=== PATIENT | female | born 1970 | race Caucasian/White ===

== ENCOUNTER 2017-01-28 03:56 | Emergency (ER) | payer MEDICAID, MEDICARE, OTHER ==
[~2017-01-28] VITALS: Ht 162.6 cm; Wt 182.3 kg
[2017-01-28] MEDS ORDERED: NS IV 500 ML 500 ML IV ONE (04:05)
[2017-01-28] MEDS ORDERED: KETOROLAC 30 MG/ML VIAL IVP STA (04:05)
--- NOTE | 2017-01-28 04:09 | ED General ---
General Chief Complaint: Psych/Social Disorder Stated Complaint: ANXIETY ATTACK Nursing Triage Note: pt woke up confused as to person, place et time. she was visiting [place] looking for a place to live. she is anxious about returning to [place] to prepare to move. she reports that symptoms had resolved by the time ems arrived, but she would like to be checked out. Nursing Sepsis Screen: No Definite Risk Source of Information: Patient Exam Limitations: No Limitations History of Present Illness Time Seen by Provider: 04:00 Initial Comments Here by EMS with report of anxiousness. She states that she was sleeping and woke up disoriented and didn't know where she was at and was very anxious. She thinks that she may be anxious because she has to go back to [place] today. She states that she had some chest pain during that event but it resolved quickly. She has had similar anxiety reaction with other events in her life. Complains of headache and swelling to the back of her head. Denies any injury or passing out. Overall doing better currently Timing/Duration: 1/2 Hour Severity: Moderate Modifying Factors: improves with Rest Associated Systoms: Chest PainNo Fever/Chills, HeadachesNo Nausea/Vomiting, No Shortness of Air, No Weakness Allergies and Home Medications Allergies Coded Allergies: codeine (Verified Allergy, Unknown, 01/28/17) morphine (Verified Allergy, Unknown, 01/28/17) Home Medications Acetaminophen 325 Mg Tablet 325 MG PO (Reported) Allopurinol 300 Mg Tablet 300 MG PO DAILY (Reported) Amlodipine/Valsartan 1 Each Tablet 1 EACH PO DAILY (Reported) Duloxetine HCl 60 Mg Capsule.dr 60 MG PO DAILY (Reported) Levothyroxine Sodium 175 Mcg Tablet 175 MCG PO DAILY (Reported) Losartan/Hydrochlorothiazide 1 Each Tablet 1 EACH PO DAILY (Reported) Meclizine HCl 25 Mg Tablet 25 MG PO Q6H PRN PRN DIZZINESS (Reported) Metformin HCl 500 Mg Tablet 500 MG PO BID (Reported) Naproxen Sodium 220 Mg Capsule 220 MG PO (Reported) Nebivolol HCl 10 Mg Tab 10 MG PO DAILY (Reported) Nitrofurantoin Monohyd/M-Cryst 100 Mg Capsule 1 TAB PO BID (Reported) Quetiapine Fumarate 100 Mg Tablet 100 MG PO HS (Reported) Scopolamine 1 Each Patch.td72 1 EACH TD (Reported) Tramadol HCl 50 Mg Tablet 50 MG PO Q6H PRN PRN PAIN (Reported) Constitutional: see HPINo chills, No fever EENTM: no symptoms reported Respiratory: no symptoms reportedNo short of breath, No wheezing Cardiovascular: see HPI chest pain Gastrointestinal: No nausea, No vomiting Genitourinary: No pain, other (currently being treated for urinary tract infection) Musculoskeletal: no symptoms reported Skin: no symptoms reported Psychiatric/Neurological: Anxiety Headache (posterior)Denies Weakness Hematologic/Lymphatic: No Symptoms Reported All Other Systems Reviewed Negative Unless Noted: Yes Past Gonwlvx-Gzyvwd-Lvauon Hx Patient Social History Alcohol Use: Denies Use Recreational Drug Use: No Smoking Status: Never a Smoker Recent Foreign Travel: No Contact w/Someone Who Travel: No Recent Infectious Disease Expo: No Recent Hopitalizations: Yes (vertigo, uti) Seasonal Allergies Seasonal Allergies: Yes Surgeries HX Surgeries: Yes Surgeries: Section, Gallbladder Respiratory Hx Respiratory Disorders: No Cardiovascular Hx Cardiac Disorders: Yes Cardiac Disorders: High Cholesterol, Hypertension Neurological Hx Neurological Disorders: Yes Neurological Disorders: Headaches /Migraines, Stroke Reproductive System Female Reproductive Disorders: Endometriosis Gastrointestinal Hx Gastrointestinal Disorders: No Musculoskeletal Hx Musculoskeletal Disorders: Yes Musculoskeletal Disorders: Gout Endocrine Hx Endocrine Disorders: Yes (thyroid disease) Endocrine Disorders: Diabetes, Non-Insulin dep Psychosocial Hx Psychiatric Problems: Yes Behavioral Health Disorders: Anxiety, Depression Reviewed Nursing Assessment Reviewed/Agree w Nursing PMH: Yes Family Medical History Significant Family History: No Pertinent Family Hx Physical Exam Vital Signs Vital Sign - Last 12Hours 01/28/17 03:58 Temp 97.6 Pulse 82 Resp 18 B/P 153/103 Capillary Refill : Less Than 3 Seconds General Appearance: No Apparent Distress WD/WN HEENT: PERRL/EOMI Pharynx Normal Neck: Non Tender Supple (just wants wound) Respiratory: Lungs Clear Normal Breath Sounds Cardiovascular: Regular Rate, Rhythm No Murmur Gastrointestinal: Non Tender Soft Back: Normal Inspection No CVA Tenderness No Vertebral Tenderness Extremity: Non Tender No Calf Tenderness Neurologic/Psychiatric: Alert Oriented x3 No Motor/Sensory Deficits Skin: Normal Color Warm/Dry Focused Exam Lactic Acid Level Laboratory Tests Test 01/28/17 04:30 Alanine Aminotransferase (ALT/SGPT) 12U/L (0-55) Albumin 3.5G/DL (3.2-4.5) Alkaline Phosphatase 103U/L (40-136) Anion Gap 14MMOL/L (5-14) Aspartate Amino Transf (AST/SGOT) 15U/L (5-34) BUN/Creatinine Ratio 21 Blood Urea Nitrogen 26MG/DL (7-18) H C-Reactive Protein High Sensitivity 2.19MG/DL (0.00-0.50) H Calcium Level 8.9MG/DL (8.5-10.1) Carbon Dioxide Level 24MMOL/L (21-32) Chloride Level 97MMOL/L (98-107) L Creatinine 1.24MG/DL (0.60-1.30) Estimat Glomerular Filtration Rate 47 Glucose Level 125MG/DL (70-105) H Magnesium Level 1.2MG/DL (1.8-2.4) L Potassium Level 3.8MMOL/L (3.6-5.0) Sodium Level 135MMOL/L (135-145) Thyroid Stimulating Hormone (TSH) 14.52UIU/ML (0.35-4.94) H Total Bilirubin 0.1MG/DL (0.1-1.0) Total Protein 7.5G/DL (6.4-8.2) Troponin I < 0.30NG/ML (<0.30) Progress/Results/Core Measures Results/Orders Lab Results Laboratory Tests Test 01/28/17 04:30 01/28/17 05:15 Range/Units Alanine Aminotransferase (ALT/SGPT) 12 0-55 U/L Albumin 3.5 3.2-4.5 G/DL Alkaline Phosphatase 103 40-136 U/L Anion Gap 14 5-14 MMOL/L Anisocytosis SLIGHT Aspartate Amino Transf (AST/SGOT) 15 5-34 U/L BUN/Creatinine Ratio 21 Band Neutrophils 1 % Basophils # (Auto) 0.1 0.0-0.1 10^3/uL Basophils % (Manual) 0 % Basophils (%) (Auto) 0 0-10 % Blood Urea Nitrogen 26 H 7-18 MG/DL C-Reactive Protein High Sensitivity 2.19 H 0.00-0.50 MG/DL Calcium Level 8.9 8.5-10.1 MG/DL Carbon Dioxide Level 24 21-32 MMOL/L Chloride Level 97 L 98-107 MMOL/L Creatinine 1.24 0.60-1.30 MG/DL Eosinophils # (Auto) 0.7 H 0.0-0.3 10^3/uL Eosinophils % (Manual) 6 % Eosinophils (%) (Auto) 5 0-10 % Estimat Glomerular Filtration Rate 47 Glucose Level 125 H 70-105 MG/DL Hematocrit 40 35-52 % Hemoglobin 13.2 11.5-16.0 G/DL Lymphocytes # (Auto) 6.4 H 1.0-4.0 X 10^3 Lymphocytes % (Manual) 36 % Lymphocytes (%) (Auto) 41 12-44 % Magnesium Level 1.2 L 1.8-2.4 MG/DL Mean Corpuscular Hemoglobin 29 25-34 PG Mean Corpuscular Hemoglobin Concent 33 32-36 G/DL Mean Corpuscular Volume 87 80-99 FL Mean Platelet Volume 9.0 7.4-10.4 FL Monocytes # (Auto) 1.1 H 0.0-1.0 X 10^3 Monocytes % (Manual) 4 % Monocytes (%) (Auto) 7 0-12 % Neutrophils # (Auto) 7.5 1.8-7.8 X 10^3 Neutrophils % (Manual) 51 % Neutrophils (%) (Auto) 48 42-75 % Platelet Count 307 130-400 10^3/uL Potassium Level 3.8 3.6-5.0 MMOL/L Reactive Lymphocytes 2 % Red Blood Count 4.58 4.35-5.85 10^6/uL Red Cell Distribution Width 14.4 10.0-14.5 % Sodium Level 135 135-145 MMOL/L Thyroid Stimulating Hormone (TSH) 14.52 H 0.35-4.94 UIU/ML Total Bilirubin 0.1 0.1-1.0 MG/DL Total Protein 7.5 6.4-8.2 G/DL Troponin I < 0.30 <0.30 NG/ML White Blood Count 15.8 H 4.3-11.0 10^3/uL Urine Bacteria LARGE H /HPF Urine Bilirubin NEGATIVE NEGATIVE Urine Casts NONE /LPF Urine Clarity VERY CLOUDY H Urine Color YELLOW Urine Crystals NONE /LPF Urine Culture Indicated YES Urine Glucose (UA) NEGATIVE NEGATIVE Urine Ketones 1+ H NEGATIVE Urine Leukocyte Esterase 3+ H NEGATIVE Urine Mucus SMALL H /LPF Urine Nitrite NEGATIVE NEGATIVE Urine Protein 4+ NEGATIVE Urine RBC 0-2 /HPF Urine RBC (Auto) 5+ H NEGATIVE Urine Specific [place] 1.020 1.016-1.022 Urine Squamous Epithelial Cells 5-10 /HPF Urine Urobilinogen NORMAL NORMAL MG/DL Urine WBC 5-10 H /HPF Urine pH 5 5-9 My Orders Orders-STEPHANIE DANIELS MD Cbc With Automated Diff (01/28/17 04:05) Comprehensive Metabolic Panel (01/28/17 04:05) Hs C Reactive Protein (01/28/17 04:05) Magnesium (01/28/17 04:05) Thyroid Stimulating Hormone (01/28/17 04:05) Troponin I (01/28/17 04:05) Ekg Tracing (01/28/17 04:05) Monitor-Rhythm Ecg Trace Only (01/28/17 04:05) Saline Lock/Iv-Start (01/28/17 04:05) Ns Iv 500 Ml (Sodium Chloride 0.9%) (01/28/17 04:05) Ketorolac Injection (Toradol Injection) (01/28/17 04:05) Chest 1 View, Ap/Pa Only (01/28/17 04:05) Manual Differential (01/28/17 04:30) Ua Culture If Indicated (01/28/17 05:07) Urine Culture (01/28/17 05:15) Medications Given in ED Current Medications Medications Dose Ordered Sig/Sanju Route Start Time Stop Time Status Last Admin Dose Admin Sodium Chloride 500 ml @ 0 mls/hr Q0M ONCE IV 01/28/17 04:05 01/28/17 04:09 DC 01/28/17 04:51 500 MLS/HR Vital Signs/I&O Vital Sign - Last 12Hours 01/28/17 03:58 Temp 97.6 Pulse 82 Resp 18 B/P 153/103 Blood Pressure Mean: 120 Progress Note : Progress Note Seen and evaluated. IV, labs, EKG and chest x-ray. Toradol 30 mg IV for headache. Normal saline 500 mL bolus. Monitor patient. I did chest x-ray order CT of the head but patient states that she cannot tolerate it while she was at the CT scanner. She had a mini anxiety attack at the time. CT was canceled. Patient noted to have a mild elevation of white count. 0535: Patient is noted to have persistent urinary tract infection. We will continue outpatient treatment. She has previously been on nitrofurantoin which has not helped. We will switch to Keflex outpatient. Overall she is feeling better. Discharged home with return precautions. Patient verbalize understanding instructions and agreement with plan. ECG Initial ECG Impression Date: Jan 28, 2017 Initial ECG Impression Time: 03:11 Initial ECG Rate: 79 Initial ECG Rhythm: Normal Sinus Initial ECG Comparisson: No Previous ECG Available Comment Sinus rhythm with rightward axis. No evidence of ST elevation GA. No previous available for comparison. Interpreted by me. Diagnostic Imaging Diagonstic Imaging: Xray Plain Films/CT/US/NM/MRI: chest Comments No acute findings Reviewed: Reviewed by Me Departure Impression Impression: Primary Impression: Anxiety Additional Impression: Urinary tract infection Qualified Code: N30.00 - Acute cystitis without hematuria Disposition: HOME, SELF-CARE Condition: Improved Departure-Patient Inst. Decision time for Depature: 05:41 Referrals: NO,LOCAL PHYSICIAN (PCP) Primary Care Physician Patient Instructions: Panic Disorder (DC), Urinary Tract Infection, Adult (DC) Add. Discharge Instructions: All discharge instructions reviewed with patient and/or family. Voiced understanding. Continue home medications as prescribed. I'll up with her for recheck and further evaluation. Talk with your doctor about the headaches that you've been having. Return for worse pain, fever, vomiting, weakness, breathing problems or other concerns as needed. Scripts Cephalexin 500 Mg [id number] Mg PO TID #21 TAB Prov:STEPHANIE DANIELS MD 01/28/17 STEPHANIE DANIELS MD Jan 28, 2017 04:09
[2017-01-28] MEDS ORDERED: LEVO175T5 PO (04:21)
[2017-01-28] MEDS ORDERED: SCOP1PAT TD (04:21)
[2017-01-28] MEDS ORDERED: LOSA1TAB19 PO (04:21)
[2017-01-28] MEDS ORDERED: NAPR220C11 PO (04:21)
[2017-01-28] MEDS ORDERED: ACET325T49 PO (04:21)
[2017-01-28] MEDS ORDERED: ALLO300T2 PO (04:21)
[2017-01-28] MEDS ORDERED: QUET100T69 PO (04:21)
[2017-01-28] MEDS ORDERED: [UNRECOGNIZED DRUG - CODE] PO (04:21)
[2017-01-28] MEDS ORDERED: METF500T4 PO (04:38)
[2017-01-28] MEDS ORDERED: DULO60CA58 PO (04:38)
[2017-01-28] MEDS ORDERED: NFNEB10T PO (04:38)
[2017-01-28] MEDS ORDERED: TRAM50TA2 PO (04:38)
[2017-01-28] MEDS ORDERED: NITR-65 PO (04:38)
[2017-01-28] MEDS ORDERED: MECL-106 PO (04:38)
[2017-01-28 04:39] LABS: BASOPHILS # (AUTO) 0.1 10^3/uL (0.0-0.1); BASOPHILS % (AUTO) 0 % (0-10); EOSINOPHILS # (AUTO) 0.7 10^3/uL (0.0-0.3); EOSINOPHILS % (AUTO) 5 % (0-10); LYMPHOCYTES # (AUTO) 6.4 X 10^3 (1.0-4.0); LYMPHOCYTES % (AUTO) 41 % (12-44); MEAN CORPUSCULAR HEMOGLOBIN 29 PG (25-34); MEAN CORPUSCULAR HGB CONC 33 G/DL (32-36); MEAN CORPUSCULAR VOLUME 87 FL (80-99); MONOCYTES # (AUTO) 1.1 X 10^3 (0.0-1.0); MONOCYTES % (AUTO) 7 % (0-12); NEUTROPHILS # (AUTO) 7.5 X 10^3 (1.8-7.8); NEUTROPHILS % (AUTO) 48 % (42-75); PLATELET COUNT 307 10^3/uL (130-400); RED BLOOD COUNT 4.58 10^6/uL (4.35-5.85); RED CELL DISTRIBUTION WIDTH 14.4 % (10.0-14.5); WHITE BLOOD COUNT 15.8 10^3/uL (4.3-11.0)
[2017-01-28 05:01] LABS: ALANINE AMINOTRANSFERASE 12 U/L (0-55); ALBUMIN 3.5 G/DL (3.2-4.5); ANION GAP 14 MMOL/L (5-14); ASPARTATE AMINO TRANSFERASE 15 U/L (5-34); BILIRUBIN,TOTAL 0.1 MG/DL (0.1-1.0); BLOOD UREA NITROGEN 26 MG/DL (7-18); BUN/CREATININE RATIO 21; CALCIUM 8.9 MG/DL (8.5-10.1); CARBON DIOXIDE 24 MMOL/L (21-32); CHLORIDE 97 MMOL/L (98-107); CREATININE SERUM 1.24 MG/DL (0.60-1.30); GFR ESTIMATED 47; GLUCOSE 125 MG/DL (70-105); MAGNESIUM 1.2 MG/DL (1.8-2.4); POTASSIUM 3.8 MMOL/L (3.6-5.0); SODIUM 135 MMOL/L (135-145); TOTAL PROTEIN 7.5 G/DL (6.4-8.2); hs C REACTIVE PROTEIN 2.19 MG/DL (0.00-0.50)
[2017-01-28 05:03] LABS: ANISOCYTOSIS SLIGHT; BAND NEUTROPHILS 1 %; BASOPHILS % (MANUAL) 0 %; EOSINOPHILS % (MANUAL) 6 %; LYMPHOCYTES % (MANUAL) 36 %; NEUTROPHILS % (MANUAL) 51 %; REACTIVE LYMPHOCYTES 2 %
[2017-01-28 05:20] LABS: BILIRUBIN,URINE NEGATIVE (NEGATIVE); KETONES,URINE 1+ (NEGATIVE); LEUKOCYTE ESTERASE ,URINE 3+ (NEGATIVE); NITRITE,URINE NEGATIVE (NEGATIVE); PH,URINE 5 (5-9); PROTEIN,URINE 4+ (NEGATIVE); UROBILINOGEN,URINE NORMAL (NORMAL)
[2017-01-28 05:20] LABS: THYROID STIMULATING HORMONE 14.52 UIU/ML (0.35-4.94); TROPONIN I < 0.30 NG/ML (<0.30)
[2017-01-28] MEDS ORDERED: CEPH500T PO (05:43)
[2017-01-28 05:55] VITALS: BP 160/98
--- NOTE | 2017-01-28 06:36 | Diagnostic Imaging Report ---
INDICATION: Chest pain. Portable chest 4:57 AM. Heart size and pulmonary vascularity are normal. Lungs are clear. There are no effusions or pneumothoraces. IMPRESSION: Negative chest. Dictated by: Dictated on workstation # [id number]
== END 2017-01-28 05:52 | disposition home or self-care (01) ==
LOC: ER 04:01
DX: F41.9 Anxiety disorder, unspecified (principal); I10 Essential (primary) hypertension; E11.9 Type 2 diabetes mellitus without complications; Z79.84 Long term (current) use of oral hypoglycemic drugs; Z79.899 Other long term (current) drug therapy
CPT/HCPCS: 36415; 71010; 80053; 81000; 83735; 84443; 84484; 85007; 85027; 86141; 87088; 93005; 93041; 96361; 96374

== ENCOUNTER 2017-04-26 18:29 | Emergency (ER) | payer MEDICAID, MEDICARE ==
[~2017-04-26] VITALS: Ht 162.6 cm; Wt 174.6 kg
[~2017-04-26 18:29] MED LIST: ACET325T49 PO; ALLO300T2 PO; CEPH500T PO; DULO60CA58 PO; LEVO175T5 PO; LOSA1TAB19 PO; MECL-106 PO; METF500T4 PO; NAPR220C11 PO; NFNEB10T PO; NITR-65 PO; QUET100T69 PO; SCOP1PAT TD; TRAM50TA2 PO; [UNRECOGNIZED DRUG - CODE] PO
--- NOTE | 2017-04-26 18:36 | ED GU-Female ---
General Chief Complaint: Abdominal/GI Problems Stated Complaint: LT FLANK PAIN Source: patient, EMS, RN notes reviewed Exam Limitations: no limitations History of Present Illness Time seen by provider: 18:28 Initial Comments Patient presents via EMS c/ c/o left flank pain and dysuria for the last 2-3 days. Symptoms have become progressively worse. Denies any N/V. No known fever. Rates her pain a 10/10 and constant. Pain does seem worse when urinating. Not aware of injuring self. Timing/Duration: constant, yesterday Severity/Quality: severe, burning, sharp Location: left flank Radiation: none Activities at Onset: none Modifying Factors: Worsens With Urinating Associated Symptoms: dysuria, No fever/chills, No nausea/vomiting Allergies and Home Medications Allergies Coded Allergies: codeine (Verified Allergy, Unknown, 01/28/17) morphine (Verified Allergy, Unknown, 01/28/17) Uncoded Allergies: MELVANE (Allergy, Severe, 04/26/17) Home Medications Acetaminophen 325 Mg Tablet, 325 MG PO, (Reported) Allopurinol 300 Mg Tablet, 300 MG PO DAILY, (Reported) Amlodipine/Valsartan 1 Each Tablet, 1 EACH PO DAILY, (Reported) Duloxetine HCl 60 Mg Capsule.dr, 60 MG PO DAILY, (Reported) Hydrocodone/Acetaminophen 1 Each Tablet, 1 EACH PO Q6H PRN for flank pain, #20 Ref 0 Prescribed by: TAYO AGUILAR on 04/26/172104 Levothyroxine Sodium 175 Mcg Tablet, 175 MCG PO DAILY, (Reported) Losartan/Hydrochlorothiazide 1 Each Tablet, 1 EACH PO DAILY, (Reported) Meclizine HCl 25 Mg Tablet, 25 MG PO Q6H PRN for DIZZINESS, (Reported) Metformin HCl 500 Mg Tablet, 500 MG PO BID, (Reported) Methocarbamol 750 Mg Tablet, 1,500 MG PO UD, #60 Ref 0 Prescribed by: TAYO AGUILAR on 04/26/172104 Naproxen Sodium 220 Mg Capsule, 220 MG PO, (Reported) Nebivolol HCl 10 Mg Tab, 10 MG PO DAILY, (Reported) Quetiapine Fumarate 100 Mg Tablet, 100 MG PO HS, (Reported) Scopolamine 1 Each Patch.td72, 1 EACH TD, (Reported) Tramadol HCl 50 Mg Tablet, 50 MG PO Q6H PRN for PAIN, (Reported) Constitutional: see HPI Genitourinary: see HPI, burning, dysuria, flank pain : No All Other Systemes Reviewed Negative Unless Noted: Yes (Negative excepted noted.) Past [place]-Cubmsb-Sbpqts Hx Patient Social History Recent Hopitalizations: Yes (vertigo, uti) Seasonal Allergies Seasonal Allergies: Yes Surgeries HX Surgeries: Yes Surgeries: Section, Gallbladder Respiratory Hx Respiratory Disorders: No Cardiovascular Hx Cardiac Disorders: Yes Cardiac Disorders: High Cholesterol, Hypertension Neurological Hx Neurological Disorders: Yes Neurological Disorders: Headaches /Migraines, Stroke Reproductive System Female Reproductive Disorders: Endometriosis Gastrointestinal Hx Gastrointestinal Disorders: No Musculoskeletal Hx Musculoskeletal Disorders: Yes Musculoskeletal Disorders: Gout Endocrine Hx Endocrine Disorders: Yes (thyroid disease) Endocrine Disorders: Diabetes, Non-Insulin dep Psychosocial Hx Psychiatric Problems: Yes Behavioral Health Disorders: Anxiety, Depression Family Medical History Significant Family History: No Pertinent Family Hx Physical Exam Vital Signs Vital Sign - Last 12Hours 04/26/17 18:31 Temp 97.5 Pulse 81 Resp 20 B/P (MAP) 166/96 Pulse Ox 94 O2 Delivery Nasal Cannula O2 Flow Rate 2.00 Capillary Refill : General Appearance: WD/WN, no apparent distress, obese Cardiovascular: regular rate, rhythm Respiratory: no respiratory distress Gastrointestinal: soft, No distended, No guarding, No rebound, No tenderness, other (obese) Rectal: deferred Back: no CVA tenderness Neurologic/Psychiatric: no motor/sensory deficits, alert, oriented x 3, depressed affect Skin: warm/dry Progress/Results/Core Measures Results/Orders Lab Results Laboratory Tests Test 04/26/17 18:31 04/26/17 18:35 Range/Units Urine Color YELLOW Urine Clarity CLEAR Urine pH 5 5-9 Urine Specific [place] 1.020 1.016-1.022 Urine Protein 3+ H NEGATIVE Urine Glucose (UA) NEGATIVE NEGATIVE Urine Ketones NEGATIVE NEGATIVE Urine Nitrite NEGATIVE NEGATIVE Urine Bilirubin NEGATIVE NEGATIVE Urine Urobilinogen NORMAL NORMAL MG/DL Urine Leukocyte Esterase 1+ H NEGATIVE Urine RBC (Auto) 1+ H NEGATIVE Urine RBC RARE /HPF Urine WBC 0-2 /HPF Urine Squamous Epithelial Cells >50 H /HPF Urine Crystals NONE /LPF Urine Bacteria NONE /HPF Urine Casts NONE /LPF Urine Mucus NEGATIVE /LPF Urine Culture Indicated NO White Blood Count 14.8 H 4.3-11.0 10^3/uL Red Blood Count 4.39 4.35-5.85 10^6/uL Hemoglobin 12.5 11.5-16.0 G/DL Hematocrit 39 35-52 % Mean Corpuscular Volume 88 80-99 FL Mean Corpuscular Hemoglobin 29 25-34 PG Mean Corpuscular Hemoglobin Concent 32 32-36 G/DL Red Cell Distribution Width 13.9 10.0-14.5 % Platelet Count 304 130-400 10^3/uL Mean Platelet Volume 9.7 7.4-10.4 FL Neutrophils (%) (Auto) 46 42-75 % Lymphocytes (%) (Auto) 45 H 12-44 % Monocytes (%) (Auto) 5 0-12 % Eosinophils (%) (Auto) 4 0-10 % Basophils (%) (Auto) 1 0-10 % Neutrophils # (Auto) 6.9 1.8-7.8 X 10^3 Lymphocytes # (Auto) 6.6 H 1.0-4.0 X 10^3 Monocytes # (Auto) 0.8 0.0-1.0 X 10^3 Eosinophils # (Auto) 0.5 H 0.0-0.3 10^3/uL Basophils # (Auto) 0.1 0.0-0.1 10^3/uL Neutrophils % (Manual) 43 % Lymphocytes % (Manual) 49 % Monocytes % (Manual) 1 % Eosinophils % (Manual) 5 % Basophils % (Manual) 1 % Band Neutrophils 1 % Blood Morphology Comment NORMAL Sodium Level 136 135-145 MMOL/L Potassium Level 4.2 3.6-5.0 MMOL/L Chloride Level 99 98-107 MMOL/L Carbon Dioxide Level 26 21-32 MMOL/L Anion Gap 11 5-14 MMOL/L Blood Urea Nitrogen 17 7-18 MG/DL Creatinine 1.27 0.60-1.30 MG/DL Estimat Glomerular Filtration Rate 46 BUN/Creatinine Ratio 13 0-20 Glucose Level 110 H 70-105 MG/DL Calcium Level 8.8 8.5-10.1 MG/DL Total Bilirubin 0.4 0.1-1.0 MG/DL Aspartate Amino Transf (AST/SGOT) 17 5-34 U/L Alanine Aminotransferase (ALT/SGPT) 12 0-55 U/L Alkaline Phosphatase 88 40-136 U/L Total Protein 7.8 6.4-8.2 GM/DL Albumin 3.7 3.2-4.5 GM/DL Serum Test, Qualitative NEGATIVE NEGATIVE My Orders Orders - TAYO AGUILAR DO Saline Lock/Iv-Start (04/26/17 18:33) Cbc With Automated Diff (04/26/17 18:33) Comprehensive Metabolic Panel (04/26/17 18:33) Ua Culture If Indicated (04/26/17 18:33) Ketorolac Injection (Toradol Injection) (04/26/17 18:45) Ns Iv 1000 Ml (Sodium Chloride 0.9%) (04/26/17 18:52) Manual Differential (04/26/17 18:35) Hcg,Qualitative Serum (04/26/17 19:10) Ct Abdomen/Pelvis Wo (04/26/17 19:35) Methocarbamol Tablet (Robaxin Tablet) (04/26/17 21:00) Hydrocodone/Apap 5/325 Tablet (Lortab 5 (04/26/17 21:00) Medications Given in ED Vital Signs/I&O Intake and Output 04/26/17 23:59 Intake Total 1000 ml Balance 1000 ml Diagnostic Imaging Diagonstic Imaging: CT Plain Films/CT/US/NM/MRI: abdomen, pelvis Reviewed: Reviewed [place] Study (nothing acute) Departure Impression Impression: Primary Impression: Left flank pain thought to be musculoskeletal in etiology Additional Impression: Morbid exogenous obesity Disposition: 01 HOME, SELF-CARE Condition: Stable Departure-Patient Inst. Decision time for Depature: 21:02 Referrals: WINNIE METCALF MD Patient Instructions: Flank Pain (DC) Scripts Hydrocodone/Acetaminophen ([place] 7.5-325 Tablet) 1 Each Tablet 1 EACH PO Q6H Y for flank pain, #20 TAB 0 Refills Prov: TAYO AGUILAR DO 04/26/17 Methocarbamol (Robaxin-750) 750 Mg Tablet 1500 MG PO UD for flank pain, #60 TAB 0 Refills Prov: TAYO AGUILAR DO 04/26/17 TAYO AGUILAR DO Apr 26, 2017 18:36
[2017-04-26] MEDS ORDERED: KETOROLAC 30 MG/ML VIAL IVP ONE (18:45)
[2017-04-26 18:49] LABS: BASOPHILS # (AUTO) 0.1 10^3/uL (0.0-0.1); BASOPHILS % (AUTO) 1 % (0-10); EOSINOPHILS # (AUTO) 0.5 10^3/uL (0.0-0.3); EOSINOPHILS % (AUTO) 4 % (0-10); LYMPHOCYTES # (AUTO) 6.6 X 10^3 (1.0-4.0); LYMPHOCYTES % (AUTO) 45 % (12-44); MEAN CORPUSCULAR HEMOGLOBIN 29 PG (25-34); MEAN CORPUSCULAR HGB CONC 32 G/DL (32-36); MEAN CORPUSCULAR VOLUME 88 FL (80-99); MEAN PLATELET VOLUME 9.7 FL (7.4-10.4); MONOCYTES # (AUTO) 0.8 X 10^3 (0.0-1.0); MONOCYTES % (AUTO) 5 % (0-12); NEUTROPHILS # (AUTO) 6.9 X 10^3 (1.8-7.8); NEUTROPHILS % (AUTO) 46 % (42-75); PLATELET COUNT 304 10^3/uL (130-400); RED BLOOD COUNT 4.39 10^6/uL (4.35-5.85); RED CELL DISTRIBUTION WIDTH 13.9 % (10.0-14.5); WHITE BLOOD COUNT 14.8 10^3/uL (4.3-11.0)
[2017-04-26] MEDS ORDERED: NS IV 1000 ML 1,000 ML IV ONE (18:52)
[2017-04-26 19:06] LABS: BAND NEUTROPHILS 1 %; BASOPHILS % (MANUAL) 1 %; EOSINOPHILS % (MANUAL) 5 %; LYMPHOCYTES % (MANUAL) 49 %; NEUTROPHILS % (MANUAL) 43 %
[2017-04-26 19:10] LABS: ALBUMIN 3.7 GM/DL (3.2-4.5); BILIRUBIN,TOTAL 0.4 MG/DL (0.1-1.0); CALCIUM 8.8 MG/DL (8.5-10.1); CREATININE SERUM 1.27 MG/DL (0.60-1.30); POTASSIUM 4.2 MMOL/L (3.6-5.0); TOTAL PROTEIN 7.8 GM/DL (6.4-8.2)
[2017-04-26 19:47] LABS: BILIRUBIN,URINE NEGATIVE (NEGATIVE); KETONES,URINE NEGATIVE (NEGATIVE); LEUKOCYTE ESTERASE ,URINE 1+ (NEGATIVE); NITRITE,URINE NEGATIVE (NEGATIVE); PH,URINE 5 (5-9); PROTEIN,URINE 3+ (NEGATIVE); UROBILINOGEN,URINE NORMAL (NORMAL)
[2017-04-26 19:54] LABS: SQUAMOUS EPITHELIAL CELL,UR >50 /HPF; WBC,URINE 0-2 /HPF
--- NOTE | 2017-04-26 20:55 | Diagnostic Imaging Report ---
PROCEDURE: CT abdomen and pelvis without contrast. TECHNIQUE: Multiple contiguous axial images were obtained through the abdomen and pelvis without the use of intravenous contrast. INDICATION: Left flank pain COMPARISON: None FINDINGS: The lung bases are clear. The liver appears unremarkable. The gallbladder is absent. The pancreas, spleen and adrenal glands appear unremarkable. No urinary tract stone or obstructive uropathy is seen. The kidneys are unremarkable. The uterus and adnexa appear unremarkable. The appendix appears normal. There is no evidence of bowel obstruction. No focal inflammatory process is suspected. There is no adenopathy or ascites. The abdominal aorta appears normal in caliber. There is bilateral spondylolysis at L5, with anterolisthesis of L5 on S1. IMPRESSION: There is no evidence of ureteral stone or obstructive uropathy. No acute abnormality seen in the abdomen and pelvis. Dictated by: Dictated on workstation # [id number]
[2017-04-26] MEDS ORDERED: METHOCARBAMOL 500 MG (ROBAXIN) TABLET PO ONE (21:00)
[2017-04-26] MEDS ORDERED: HYDROcodone/APAP 5 MG/325 MG (LORTAB) TAB PO ONE (21:00)
[2017-04-26] MEDS ORDERED: METH-313 PO (21:05)
[2017-04-26] MEDS ORDERED: HYDR-756 PO (21:05)
[2017-04-26 21:41] VITALS: BP 0/0
== END 2017-04-26 21:41 | disposition home or self-care (01) ==
LOC: EDUNIT# 18:29 → ER 18:30
DX: R10.9 Unspecified abdominal pain (principal); E66.01 Morbid (severe) obesity due to excess calories; E11.9 Type 2 diabetes mellitus without complications; I10 Essential (primary) hypertension; E07.9 Disorder of thyroid, unspecified; Z86.73 Personal history of transient ischemic attack (TIA), and cerebral infarction without residual deficits; Z90.49 Acquired absence of other specified parts of digestive tract; Z79.84 Long term (current) use of oral hypoglycemic drugs
CPT/HCPCS: 36415; 74176; 80053; 81000; 84703; 85007; 85027

== ENCOUNTER 2017-06-01 02:49 | Inpatient (IN) | payer MEDICARE ==
[~2017-06-01] VITALS: Ht 162.6 cm; Wt 179.2 kg
[~2017-06-01 02:49] MED LIST changes: +HYDR-756 PO; +METH-313 PO
[2017-06-01] MEDS ORDERED: NS IV 1000 ML 1,000 ML IV ONE ×2 (03:03→03:38)
--- NOTE | 2017-06-01 03:03 | ED General ---
General Chief Complaint: Altered Mental Status Stated Complaint: DISORIENTATION Source of Information: Patient, EMS Exam Limitations: No Limitations History of Present Illness Time Seen by Provider: 02:52 Initial Comments Patient presents to ER by EMS with a chief complaint of feeling off after waking up around 9:00 last night. She is reporting that she feels she may have had heat stroke after going to the pool today with her group. She says about 5: 00 to go to the pool and she was doing well while waiting in the pool but in the dressing room she felt lightheaded and almost passed out. She did not pass out or fall however. She reports she had a little mild nausea and when she went home she had something to eat and then went to bed. She woke up again around 9 at night and that's when she started feeling bad. She did not check her sugar blood pressure at that time. She is diabetic. EMS reports that when they picked her up she was wearing her oxygen that she typically wears at night or her sleep apnea. She had normal vital signs and a normal blood sugar when EMS picked her up. The place an IV in her right before meals and brought her to the ER. Patient denies any pain anywhere shortness of breath weakness discomfort bowel distention diarrhea, constipation, vomiting, rash, runny nose, ears hurting her feeling underwater. She has however having some nausea and received 4 mg of Zofran from EMS on route. She feels the nausea is better now. She also wants to know if she could be as she is socially active with her monogamous boyfriend. She says she had a D&C approximate 5 years ago and has not had a period since. Patient states she takes meclizine as needed for her history of vertigo. She states that her vertigo presents as dizziness and the room spinning but this is not what she was feeling yesterday after her time in the pool. Allergies and Home Medications Allergies Coded Allergies: codeine (Verified Allergy, Unknown, 01/28/17) morphine (Verified Allergy, Unknown, 01/28/17) Uncoded Allergies: MELVANE (Allergy, Severe, 04/26/17) Home Medications Acetaminophen 325 Mg Tablet, 325 MG PO, (Reported) Allopurinol 300 Mg Tablet, 300 MG PO DAILY, (Reported) Amlodipine/Valsartan 1 Each Tablet, 1 EACH PO DAILY, (Reported) Duloxetine HCl 60 Mg Capsule.dr, 60 MG PO DAILY, (Reported) Hydrocodone/Acetaminophen 1 Each Tablet, 1 EACH PO Q6H PRN for flank pain, #20 Ref 0 Prescribed by: TAYO AGUILAR on 04/26/172104 Levothyroxine Sodium 175 Mcg Tablet, 175 MCG PO DAILY, (Reported) Losartan/Hydrochlorothiazide 1 Each Tablet, 1 EACH PO DAILY, (Reported) Meclizine HCl 25 Mg Tablet, 25 MG PO Q6H PRN for DIZZINESS, (Reported) Metformin HCl 500 Mg Tablet, 500 MG PO BID, (Reported) Methocarbamol 750 Mg Tablet, 1,500 MG PO UD, #60 Ref 0 Prescribed by: TAYO AGUILAR on 04/26/172104 Naproxen Sodium 220 Mg Capsule, 220 MG PO, (Reported) Nebivolol HCl 10 Mg Tab, 10 MG PO DAILY, (Reported) Quetiapine Fumarate 100 Mg Tablet, 100 MG PO HS, (Reported) Scopolamine 1 Each Patch.td72, 1 EACH TD, (Reported) Tramadol HCl 50 Mg Tablet, 50 MG PO Q6H PRN for PAIN, (Reported) Constitutional: No chills, No diaphoresis, No dizziness, No fever, malaise, No weakness EENTM: No ear pain, No eye pain, No nose pain Respiratory: No cough, No short of breath, No wheezing Cardiovascular: No chest pain, No edema, No palpitations, No syncope, No vascular heart diseas Gastrointestinal: No abdominal pain, No constipation, No diarrhea, nausea, No vomiting Genitourinary: No discharge, No dysuria : No (unknown) Musculoskeletal: No back pain, No joint pain Skin: No pruritus, No rash Psychiatric/Neurological: Denies Headache, Denies Numbness, Denies Paresthesia Past Ldmzcmi-Pyvvrz-Hhtoib Hx Patient Social History Recent Foreign Travel: No Contact w/Someone Who Travel: No Recent Hopitalizations: No Seasonal Allergies Seasonal Allergies: Yes Surgeries HX Surgeries: Yes Surgeries: Section, Gallbladder Respiratory Hx Respiratory Disorders: No Cardiovascular Hx Cardiac Disorders: Yes Cardiac Disorders: High Cholesterol, Hypertension Neurological Hx Neurological Disorders: Yes Neurological Disorders: Headaches /Migraines, Stroke Reproductive System Female Reproductive Disorders: Endometriosis Genitourinary Genitourinary Disorders: UTI-Chronic Gastrointestinal Hx Gastrointestinal Disorders: No Musculoskeletal Hx Musculoskeletal Disorders: Yes Musculoskeletal Disorders: Gout Endocrine Hx Endocrine Disorders: Yes (thyroid disease) Endocrine Disorders: Diabetes, Non-Insulin dep Psychosocial Hx Psychiatric Problems: Yes Behavioral Health Disorders: Anxiety, Depression Family Medical History Significant Family History: No Pertinent Family Hx Physical Exam Vital Signs Vital Sign - Last 12Hours 06/01/17 02:54 Temp 96.5 Pulse 97 Resp 18 B/P (MAP) 161/106 Pulse Ox 93 O2 Delivery Room Air Capillary Refill : General Appearance: No Apparent Distress, Obese Eyes: Bilateral Eye EOMI, Bilateral Eye Normal Inspection, Bilateral Eye PERRL HEENT: PERRL/EOMI, Pharynx Normal Neck: Normal Inspection, Non Tender, Supple Respiratory: Lungs Clear, Normal Breath Sounds Cardiovascular: Regular Rate, Rhythm, No Murmur Gastrointestinal: Normal Bowel Sounds, Non Tender, Soft Back: Normal Inspection, No CVA Tenderness Extremity: Normal Capillary Refill, Non Tender Neurologic/Psychiatric: Alert, Oriented x3 Skin: Normal Color, Warm/Dry Lymphatic: No Adenopathy Focused Exam Lactic Acid Level Laboratory Tests Test 06/01/17 03:05 Lactic Acid Level 2.21 MMOL/L (0.50-2.00) *H Progress/Results/Core Measures Results/Orders Lab Results Laboratory Tests Test 06/01/17 02:50 06/01/17 03:05 06/01/17 03:40 Range/Units White Blood Count 20.3 H 4.3-11.0 10^3/uL Red Blood Count 4.22 L 4.35-5.85 10^6/uL Hemoglobin 12.0 11.5-16.0 G/DL Hematocrit 38 35-52 % Mean Corpuscular Volume 90 80-99 FL Mean Corpuscular Hemoglobin 28 25-34 PG Mean Corpuscular Hemoglobin Concent 32 32-36 G/DL Red Cell Distribution Width 14.3 10.0-14.5 % Platelet Count 362 130-400 10^3/uL Mean Platelet Volume 9.7 7.4-10.4 FL Neutrophils (%) (Auto) 48 42-75 % Lymphocytes (%) (Auto) 44 12-44 % Monocytes (%) (Auto) 6 0-12 % Eosinophils (%) (Auto) 2 0-10 % Basophils (%) (Auto) 0 0-10 % Neutrophils # (Auto) 9.6 H 1.8-7.8 X 10^3 Lymphocytes # (Auto) 8.9 H 1.0-4.0 X 10^3 Monocytes # (Auto) 1.3 H 0.0-1.0 X 10^3 Eosinophils # (Auto) 0.4 H 0.0-0.3 10^3/uL Basophils # (Auto) 0.1 0.0-0.1 10^3/uL Neutrophils % (Manual) 51 % Lymphocytes % (Manual) 35 % Monocytes % (Manual) 4 % Eosinophils % (Manual) 2 % Basophils % (Manual) 1 % Reactive Lymphocytes 7 % Blood Morphology Comment NORMAL Prothrombin Time 11.6 L 12.2-14.7 SEC INR Comment 0.9 0.8-1.4 Activated Partial Thromboplast Time 30 24-35 SEC Sodium Level 137 135-145 MMOL/L Potassium Level 3.7 3.6-5.0 MMOL/L Chloride Level 94 L 98-107 MMOL/L Carbon Dioxide Level 25 21-32 MMOL/L Anion Gap 18 H 5-14 MMOL/L Blood Urea Nitrogen 18 7-18 MG/DL Creatinine 1.02 0.60-1.30 MG/DL Estimat Glomerular Filtration Rate 59 BUN/Creatinine Ratio 18 Glucose Level 127 H 70-105 MG/DL Calcium Level 9.2 8.5-10.1 MG/DL Magnesium Level 1.4 L 1.8-2.4 MG/DL Total Bilirubin 0.2 0.1-1.0 MG/DL Aspartate Amino Transf (AST/SGOT) 18 5-34 U/L Alanine Aminotransferase (ALT/SGPT) 12 0-55 U/L Alkaline Phosphatase 83 40-136 U/L Troponin I < 0.30 <0.30 NG/ML C-Reactive Protein High Sensitivity 2.07 H 0.00-0.50 MG/DL Total Protein 8.2 6.4-8.2 GM/DL Albumin 3.6 3.2-4.5 GM/DL Lactic Acid Level 2.21 *H 0.50-2.00 MMOL/L Urine Color YELLOW Urine Clarity CLEAR Urine pH 6.5 5-9 Urine Specific [place] 1.010 L 1.016-1.022 Urine Protein 4+ NEGATIVE Urine Glucose (UA) NEGATIVE NEGATIVE Urine Ketones NEGATIVE NEGATIVE Urine Nitrite NEGATIVE NEGATIVE Urine Bilirubin NEGATIVE NEGATIVE Urine Urobilinogen NORMAL NORMAL MG/DL Urine Leukocyte Esterase NEGATIVE NEGATIVE Urine RBC (Auto) 2+ H NEGATIVE Urine RBC 5-10 H /HPF Urine WBC NONE /HPF Urine Squamous Epithelial Cells 5-10 /HPF Urine Crystals NONE /LPF Urine Bacteria NEGATIVE /HPF Urine Casts NONE /LPF Urine Mucus NEGATIVE /LPF Urine Culture Indicated NO Urine Test NEGATIVE NEGATIVE My Orders Orders - SILKE GARCIA Cbc With Automated Diff (06/01/17 03:03) Comprehensive Metabolic Panel (06/01/17 03:03) Hs C Reactive Protein (06/01/17 03:03) Hcg,Qualitative Urine (06/01/17 03:03) Lactic Acid Analyzer (06/01/17 03:03) Magnesium (06/01/17 03:03) Troponin I (06/01/17 03:03) Ua Culture If Indicated (06/01/17 03:03) Saline Lock/Iv-Start (06/01/17 03:03) Ns Iv 1000 Ml (Sodium Chloride 0.9%) (06/01/17 03:03) Manual Differential (06/01/17 02:50) Magnesium Oxide Tablet (Mag Ox Tablet) (06/01/17 03:30) Blood Culture (06/01/17 03:30) Sputum Culture (06/01/17 03:30) Protime With Inr (06/01/17 03:30) Partial Thromboplastin Time (06/01/17 03:30) Chest 1 View, Ap/Pa Only (06/01/17 03:30) O2 (06/01/17 03:30) Saline Lock/Iv-Start (06/01/17 03:30) Vital Signs Adult Sepsis Patie Q1HR (06/01/17 03:30) Remove Rings In Anticipation O (06/01/17 03:30) Saline Lock/Iv-Start (06/01/17 03:38) Ns Iv 500 Ml (Sodium Chloride 0.9%) (06/01/17 03:38) Ns Iv 1000 Ml (Sodium Chloride 0.9%) (06/01/17 03:38) Ns Iv 1000 Ml (Sodium Chloride 0.9%) (06/01/17 03:45) Medications Given in ED Current Medications Medications Dose Ordered Sig/Sanju Route Start Time Stop Time Status Last Admin Dose Admin Magnesium Oxide 400 mg ONCE ONCE PO 06/01/17 03:30 06/01/17 03:31 DC 06/01/17 03:47 400 MG Sodium Chloride 500 ml @ 0 mls/hr Q0M ONCE IV 06/01/17 03:38 06/01/17 03:40 DC 06/01/17 03:48 0 MLS/HR Sodium Chloride 1,000 ml @ 0 mls/hr Q0M ONCE IV 06/01/17 03:03 06/01/17 03:06 DC 06/01/17 03:12 0 MLS/HR Sodium Chloride 1,000 ml @ 0 mls/hr Q0M ONCE IV 06/01/17 03:38 06/01/17 03:40 DC 06/01/17 03:48 0 MLS/HR Vital Signs/I&O Vital Sign - Last 12Hours 06/01/17 06/01/17 06/01/17 02:54 03:00 04:00 Temp 96.5 97.0 Pulse 97 87 Resp 18 18 B/P (MAP) 161/106 157/87 Pulse Ox 93 97 97 O2 Delivery Room Air Room Air Room Air Progress Note #1: Time: 03:13 Progress Note Patient presents with a very nonspecific an odd constellation of non-specific symptoms. She specifically asked to be checked if she was . We will look for any evidence of infection or inflammation and as there are no focal complaints other than feeling like she could pass out yesterday we will give her a liter fluids and check her urine as well. Patient is quite pleasant and cooperative and without any evidence of acute distress at the time. Progress Note #2: Time: 03:36 Progress Note Patient with sepsis and lactate over 2.0. We'll give her 20 mils per kilogram of fluids. We'll also obtain chest x-ray and cultures. Diagnostic Imaging Diagonstic Imaging: Xray Plain Films/CT/US/NM/MRI: chest Comments Potential right lower lobe infiltrate. Reviewed: Reviewed by Me Departure Communication Time/Spoke to Admitting Phy: 04:47 Communication Discussed the case and how the patient has no focal complaints or abdominal complaints. Dr. Jamison is okay with us starting Rocephin and Levaquin and will see the patient in the morning. Discussed the lactate and white count as well as her history of present illness. Pneumonia Admission Pseudomonal Risk: No known risk Patient allergy/sensitivity/re: None Pneumonia order set available: CAP Non ICU Impression Impression: Primary Impression: Pneumonia Qualified Codes: J18.1 - Lobar pneumonia, unspecified organism Additional Impressions: Altered mental status Qualified Codes: R41.82 - Altered mental status, unspecified Sepsis Qualified Codes: A41.9 - Sepsis, unspecified organism Disposition: ADMITTED INPATIENT Condition: Improved Decision to Admit Reason: Admit from ER (General) Decision to Admit/Date: Jun 01, 2017 Time/Decision to Admit Time: 04:50 Departure-Patient Inst. Referrals: [facility] (PCP/Family) Primary Care Physician Copy Copies To 1: SEJAL RIOS TITUS J Jun 01, 2017 03:03
[2017-06-01 03:12] LABS: BASOPHILS # (AUTO) 0.1 10^3/uL (0.0-0.1); BASOPHILS % (AUTO) 0 % (0-10); EOSINOPHILS # (AUTO) 0.4 10^3/uL (0.0-0.3); EOSINOPHILS % (AUTO) 2 % (0-10); LYMPHOCYTES # (AUTO) 8.9 X 10^3 (1.0-4.0); LYMPHOCYTES % (AUTO) 44 % (12-44); MEAN CORPUSCULAR HEMOGLOBIN 28 PG (25-34); MEAN CORPUSCULAR HGB CONC 32 G/DL (32-36); MEAN CORPUSCULAR VOLUME 90 FL (80-99); MEAN PLATELET VOLUME 9.7 FL (7.4-10.4); MONOCYTES # (AUTO) 1.3 X 10^3 (0.0-1.0); MONOCYTES % (AUTO) 6 % (0-12); NEUTROPHILS # (AUTO) 9.6 X 10^3 (1.8-7.8); NEUTROPHILS % (AUTO) 48 % (42-75); PLATELET COUNT 362 10^3/uL (130-400); RED BLOOD COUNT 4.22 10^6/uL (4.35-5.85); RED CELL DISTRIBUTION WIDTH 14.3 % (10.0-14.5); WHITE BLOOD COUNT 20.3 10^3/uL (4.3-11.0)
[2017-06-01 03:25] LABS: ANION GAP 18 MMOL/L (5-14); BLOOD UREA NITROGEN 18 MG/DL (7-18); CARBON DIOXIDE 25 MMOL/L (21-32); CHLORIDE 94 MMOL/L (98-107); CREATININE SERUM 1.02 MG/DL (0.60-1.30); POTASSIUM 3.7 MMOL/L (3.6-5.0); SODIUM 137 MMOL/L (135-145)
[2017-06-01 03:26] LABS: ALANINE AMINOTRANSFERASE 12 U/L (0-55); ALBUMIN 3.6 GM/DL (3.2-4.5); ASPARTATE AMINO TRANSFERASE 18 U/L (5-34); BILIRUBIN,TOTAL 0.2 MG/DL (0.1-1.0); BUN/CREATININE RATIO 18; CALCIUM 9.2 MG/DL (8.5-10.1); GFR ESTIMATED 59; GLUCOSE 127 MG/DL (70-105); MAGNESIUM 1.4 MG/DL (1.8-2.4); TOTAL PROTEIN 8.2 GM/DL (6.4-8.2); hs C REACTIVE PROTEIN 2.07 MG/DL (0.00-0.50)
[2017-06-01] MEDS ORDERED: MAGNESIUM OXIDE (MAG-OX)400 MG TAB PO ONE (03:30)
[2017-06-01 03:31] LABS: TROPONIN I < 0.30 NG/ML (<0.30)
[2017-06-01] MEDS ORDERED: NS IV 500 ML 500 ML IV ONE (03:38)
[2017-06-01 03:43] LABS: INR 0.9 (0.8-1.4); PROTHROMBIN TIME PATIENT 11.6 SEC (12.2-14.7)
[2017-06-01] MEDS ORDERED: NS IV 1000 ML 1,000 ML IV SCH (03:45)
[2017-06-01 03:53] LABS: BASOPHILS % (MANUAL) 1 %; EOSINOPHILS % (MANUAL) 2 %; LYMPHOCYTES % (MANUAL) 35 %; NEUTROPHILS % (MANUAL) 51 %; REACTIVE LYMPHOCYTES 7 %
[2017-06-01 04:09] LABS: BILIRUBIN,URINE NEGATIVE (NEGATIVE); KETONES,URINE NEGATIVE (NEGATIVE); LEUKOCYTE ESTERASE ,URINE NEGATIVE (NEGATIVE); NITRITE,URINE NEGATIVE (NEGATIVE); PH,URINE 6.5 (5-9); PROTEIN,URINE 4+ (NEGATIVE); UROBILINOGEN,URINE NORMAL (NORMAL)
[2017-06-01] MEDS ORDERED: LEVOFLOXACIN 500 MG TAB (LEVAQUIN) PO STA (04:44)
[2017-06-01] MEDS ORDERED: cefTRIAXone INJECTION 1,000 MG in NS (IVPB) 50 ML IV ONE (04:45)
[2017-06-01] MEDS ORDERED: ONDANSETRON 4 MG/2 ML (SDV) Z0FRAN IV PRN (05:30)
[2017-06-01] MEDS ORDERED: ACETAMINOPHEN 500 MG TAB (TYLENOL) PO PRN (05:30)
--- NOTE | 2017-06-01 07:08 | Diagnostic Imaging Report ---
INDICATION: Altered mental status. Exam compared 01/28/2017. FINDINGS: Body habitus and portable technique limit sensitivity. At least mild enlargement of the cardiac silhouette noted, but no gross overdistention of vascularity and no evidence for edema, pneumonia, pleural fluid or pneumothorax. IMPRESSION: Limited by body habitus. Upper limits heart size, but no acute abnormality identified. Dictated by: Dictated on workstation # [id number]
[2017-06-01 08:00] VITALS: BP 164/97
[2017-06-01] MEDS ORDERED: FENO135C PO (09:24)
[2017-06-01] MEDS ORDERED: IBUP-30 PO (09:24)
[2017-06-01] MEDS ORDERED: LOSA1TAB70 PO (09:24)
[2017-06-01] MEDS ORDERED: ACET-168 PO (09:24)
[2017-06-01] MEDS ORDERED: FLUO20CA25 PO (09:24)
[2017-06-01] MEDS ORDERED: CHOL4PAC2 PO (10:02)
[2017-06-01] MEDS ORDERED: ASPI-983 PO (10:02)
[2017-06-01 12:00] VITALS: BP 156/96
[2017-06-01] MEDS ORDERED: LEVO750T9 PO (13:51)
--- NOTE | 2017-06-01 13:54 | Discharge Instructions ---
Discharge [facility] Discharge Medications New, Converted or Re-Newed RX: Transmitted to Pharmacy New Medications: Levofloxacin (Levaquin) 750 Mg Tablet 750 MG PO DAILY for 6 Days, #6 TAB Continued Medications: Acetaminophen (Acetaminophen Extra Strength) 500 Mg Tablet 1000 MG PO Q6H PRN for PAIN-MILD, TAB ALTERNATES WITH IBU Allopurinol (Allopurinol) 300 Mg Tablet 300 MG PO DAILY, TAB Aspirin (Aspirin EC) 81 Mg Tablet.dr 81 MG PO DAILY, TAB Cholestyramine (with Sugar) (Cholestyramine Packet) 4 Gm Powd.pack 4 GM PO BID PRN for DIARRHEA, EACH Fenofibric Acid (Choline) (Trilipix) 135 Mg Capsule.dr 135 MG PO DAILY, CAP HAS NOT STARTED TAKING THIS YET Fluoxetine HCl (Fluoxetine HCl) 20 Mg Capsule 20 MG PO DAILY, CAP Ibuprofen (Advil) 200 Mg Tablet 800 MG PO Q6H PRN for PAIN-MILD, TAB ALTERNATES WITH TYLENOL Levothyroxine Sodium (Levothyroxine Sodium) 175 Mcg Tablet 175 MCG PO DAILY, TAB Losartan/Hydrochlorothiazide (Losartan-Hctz 100-25 mg Tab) 1 Each Tablet 1 TAB PO DAILY, TAB Meclizine HCl (Meclizine HCl) 25 Mg Tablet 25 MG PO Q6H PRN for DIZZINESS, TAB Metformin HCl (Metformin HCl) 500 Mg Tablet 500 MG PO BID, TAB LAST FILLED #60 17 Quetiapine Fumarate (Quetiapine Fumarate) 100 Mg Tablet 100 MG PO HS, TAB Scopolamine (Transderm-Scop) 1 Each Patch.td72 1 PATCH TD Q72H, PATCH LAST FILLED #4 02-28-17 Patient Instructions Goal/Follow Up Appt: You have a followup appt with Josee Campos on Jun 23 @ 11AM Patient Instructions: - Make sure to stay well hydrated with 1.5-2 L of water per day - Stay out of the heat as much as possible Return to The Hospital For: - Fever or chills - Severe pain - Chest pain - Shortness of breath Activity & Diet Discharge Diet: ADA Diet, Cardiac Diet Activity as Tolerated: Yes Copy Copies To 1: [facility] PO Parks MD Jun 01, 2017 13:54
--- NOTE | 2017-06-01 13:59 | Short Stay Summary ---
HPI History of Present Illness: 46 yo Morbidly obese female that presented to ER early this AM because she states that she just doesn't feel right. Denies any specific complaints. States that she was at the pool yesterday afternoon in the heat and that is when she started feeling dizzy and nauseous. Denies cough, shortness of breath, abdominal pain, fever or chills. States that prior to yesterday she was feeling normal. Source: patient, RN/MD Exam Limitations: no limitations Date seen by provider: Jun 01, 2017 Time Seen by Provider: 10:00 Attending Physician Po Jamison MD PCP Shari,[facility] Consult Date of Admission Jun 01, 2017 at 04:55 Home Medications Home Medications Reviewed patient Home Medication Reconciliation Form Allergies Coded Allergies: codeine (Verified Allergy, Unknown, 01/28/17) morphine (Verified Allergy, Unknown, 01/28/17) Uncoded Allergies: MELVANE (Allergy, Severe, 04/26/17) KBU-Betfmo-Bcrfcv Hx Patient Social History Alcohol Use: Denies Use Recreational Drug Use: No Smoking Status: Never a Smoker Recent Foreign Travel: No Contact w/other who traveled: No Recent Hopitalizations: No Recent Infectious Disease Expo: No Physical Abuse Screen: No Sexual Abuse: No Immunizations Up To Date Tetanus Booster (TDap): Unknown Family Medical History Significant Family History: No Pertinent Family Hx Review of Systems (CHC) Constitutional: No chills, dizziness, No fever, No weakness EENTM: no symptoms reported, No ear pain, No vision loss Respiratory: no symptoms reported, No cough, No dyspnea on exertion, No short of breath Cardiovascular: no symptoms reported, No chest pain, No edema, No palpitations Gastrointestinal: no symptoms reported, No abdominal pain, No constipation, No diarrhea, No nausea, No vomiting Genitourinary: no symptoms reported, No dysuria, No frequency, No hematuria : No Musculoskeletal: no symptoms reported, No back pain, No joint pain, No muscle pain Skin: no symptoms reported, No lesions, No rash Psychiatric/Neurological: Denies Anxiety, Denies Depressed Reviewed Test Results Reviewed Test Results Lab Laboratory Tests Test 06/01/17 02:50 06/01/17 03:05 06/01/17 03:40 06/01/17 05:10 Range/Units White Blood Count 20.3 H 4.3-11.0 10^3/uL Red Blood Count 4.22 L 4.35-5.85 10^6/uL Hemoglobin 12.0 11.5-16.0 G/DL Hematocrit 38 35-52 % Mean Corpuscular Volume 90 80-99 FL Mean Corpuscular Hemoglobin 28 25-34 PG Mean Corpuscular Hemoglobin Concent 32 32-36 G/DL Red Cell Distribution Width 14.3 10.0-14.5 % Platelet Count 362 130-400 10^3/uL Mean Platelet Volume 9.7 7.4-10.4 FL Neutrophils (%) (Auto) 48 42-75 % Lymphocytes (%) (Auto) 44 12-44 % Monocytes (%) (Auto) 6 0-12 % Eosinophils (%) (Auto) 2 0-10 % Basophils (%) (Auto) 0 0-10 % Neutrophils # (Auto) 9.6 H 1.8-7.8 X 10^3 Lymphocytes # (Auto) 8.9 H 1.0-4.0 X 10^3 Monocytes # (Auto) 1.3 H 0.0-1.0 X 10^3 Eosinophils # (Auto) 0.4 H 0.0-0.3 10^3/uL Basophils # (Auto) 0.1 0.0-0.1 10^3/uL Neutrophils % (Manual) 51 % Lymphocytes % (Manual) 35 % Monocytes % (Manual) 4 % Eosinophils % (Manual) 2 % Basophils % (Manual) 1 % Reactive Lymphocytes 7 % Blood Morphology Comment NORMAL Prothrombin Time 11.6 L 12.2-14.7 SEC INR Comment 0.9 0.8-1.4 Activated Partial Thromboplast Time 30 24-35 SEC Sodium Level 137 135-145 MMOL/L Potassium Level 3.7 3.6-5.0 MMOL/L Chloride Level 94 L 98-107 MMOL/L Carbon Dioxide Level 25 21-32 MMOL/L Anion Gap 18 H 5-14 MMOL/L Blood Urea Nitrogen 18 7-18 MG/DL Creatinine 1.02 0.60-1.30 MG/DL Estimat Glomerular Filtration Rate 59 BUN/Creatinine Ratio 18 Glucose Level 127 H 70-105 MG/DL Calcium Level 9.2 8.5-10.1 MG/DL Magnesium Level 1.4 L 1.8-2.4 MG/DL Total Bilirubin 0.2 0.1-1.0 MG/DL Aspartate Amino Transf (AST/SGOT) 18 5-34 U/L Alanine Aminotransferase (ALT/SGPT) 12 0-55 U/L Alkaline Phosphatase 83 40-136 U/L Troponin I < 0.30 <0.30 NG/ML C-Reactive Protein High Sensitivity 2.07 H 0.00-0.50 MG/DL Total Protein 8.2 6.4-8.2 GM/DL Albumin 3.6 3.2-4.5 GM/DL Lactic Acid Level 2.21 *H 1.38 0.50-2.00 MMOL/L Urine Color YELLOW Urine Clarity CLEAR Urine pH 6.5 5-9 Urine Specific [place] 1.010 L 1.016-1.022 Urine Protein 4+ NEGATIVE Urine Glucose (UA) NEGATIVE NEGATIVE Urine Ketones NEGATIVE NEGATIVE Urine Nitrite NEGATIVE NEGATIVE Urine Bilirubin NEGATIVE NEGATIVE Urine Urobilinogen NORMAL NORMAL MG/DL Urine Leukocyte Esterase NEGATIVE NEGATIVE Urine RBC (Auto) 2+ H NEGATIVE Urine RBC 5-10 H /HPF Urine WBC NONE /HPF Urine Squamous Epithelial Cells 5-10 /HPF Urine Crystals NONE /LPF Urine Bacteria NEGATIVE /HPF Urine Casts NONE /LPF Urine Mucus NEGATIVE /LPF Urine Culture Indicated NO Urine Test NEGATIVE NEGATIVE Test 06/01/17 11:15 Range/Units Glucometer 139 H 70-110 MG/DL Radiology Date of Exam: 06/01/17 CHEST 1 VIEW, AP/PA ONLY INDICATION: Altered mental status. Exam compared 01/28/2017. FINDINGS: Body habitus and portable technique limit sensitivity. At least mild enlargement of the cardiac silhouette noted, but no gross overdistention of vascularity and no evidence for edema, pneumonia, pleural fluid or pneumothorax. IMPRESSION: Limited by body habitus. Upper limits heart size, but no acute abnormality identified. Physical Exam-([facility]) Physical Exam Vital Signs VS - Last 72 Hours, by Label 06/01/17 06/01/17 06/01/17 06/01/17 02:54 03:00 04:00 04:59 Temp 96.5 97.0 97.1 Pulse 97 87 84 Resp 18 18 20 B/P (MAP) 161/106 157/87 Pulse Ox 93 97 97 96 O2 Delivery Room Air Room Air Room Air Room Air 06/01/17 06/01/17 06/01/17 06/01/17 05:16 08:00 09:00 12:00 Temp 97.6 97.6 Pulse 99 84 Resp 20 20 B/P (MAP) 164/97 156/96 Pulse Ox 94 95 O2 Delivery Room Air Room Air Room Air Room Air Capillary Refill : Less Than 3 Seconds General Appearance: WD/WN, no apparent distress, obese (morbidly) HEENT: PERRL/EOMI Neck: non-tender, full range of motion, supple, normal inspection Respiratory: chest non-tender, lungs clear, normal breath sounds, no respiratory distress, no accessory muscle use Cardiovascular: normal peripheral pulses, regular rate, rhythm, no edema, no JVD, no murmur Gastrointestinal: normal bowel sounds, non tender, soft, No guarding, No rebound, No tenderness Back: normal inspection, no CVA tenderness, no vertebral tenderness Extremities: normal range of motion, non-tender, normal inspection, no pedal edema, no calf tenderness, normal capillary refill Neurologic/Psychiatric: fondant cooker II-XII nml as tested, no motor/sensory deficits, alert, normal mood/affect, oriented x 3 Skin: normal color, warm/dry Lymphatic: no adenopathy Short Stay Diagnosis Discharge Diagnosis-Short Stay Admission Diagnosis Altered Mental Status Leukocytosis Elevated Lactic Acidosis HTN Final Discharge Diagnosis See Above Conclusion Plan 46 yo F that presented to ER with confusion Plan Altered Mental Status - Patient with Leukocytosis but no origin of infection, maybe exhaustion with being outside all day at the pool - Resolved this AM, patient at baseline Leukocytosis - No signs of infection, urine and chest clear, no skin wounds - Will treat with Levaquin presumptively Lactic Acidosis - Resolved this AM with minimal IVFs HTN - Patient did not get her home medications last night - Will restart blood pressure medications Patient was wanting to go home this AM, will treat presumptively with levaquin to cover for infection cause, Will have close follow up in clinic Clinical Quality Measures DVT/VTE Risk/Contraindication: Risk Factor Score Per Nursin RFS Level Per Nursing on Admit: 3=High Pneumonia: Pseudomonal Risk: No known risk Copy Copies To 1: PO Palm MD Jun 01, 2017 13:59
[2017-06-01 15:00] VITALS: BP 156/96
--- NOTE | 2017-06-02 14:03 | Physician Query Clarification ---
PQ-Intro New Diagnosis Admission/Discharge Admission Date: Jun 01, 2017 at 04:55 Discharge Date: Jun 01, 2017 at 15:00 The medical record reflects the following clinical scenario: History/Risk Factors Pt admitted from ER with sepsis and pneumonia Clinical Findings: WBC 20.3, elevated lactic acid Treatment: Rocephin, Levaquin Question: Is Sepsis and/or pneumonia a clinically valid diagnosis? Sepsis and pneumonia was documented in the ED report with no further documentation in short stay summary. If yes, please document in the summary. 1. Yes, sepsis with pneumonia is valid dx 2. Sepsis only, no pneumonia 3. Other, please clarify 4. Clinically undetermined, no explanation for the clinical findings. PHYSICIAN RESPONSE What condition reflects above: Clinically undetermined Explanation of clincal finding Patient had no findings on CXR that support PNA diagnosis. She did not have fever or chills, did not require oxygen and denied and shortness of breath or cough. Patient's lactic acid resolved with little IVFs which does not support diagnosis of Sepsis In responding to this query, please exercise your independent professional judgment. The purpose of this communication is to more accurately reflect the complexity of your patients condition. The fact that a question is asked does not imply that any particular answer is desired or expected. Thank you for your timely response to this clarification. Requestors name: [ ] Phone # [ ] THIS PHYSICIAN QUERY FORM IS A PERMANENT PART OF THE MEDICAL RECORD MARC MORALES Jun 02, 2017 14:03 PO ROTHMAN MD Jun 02, 2017 19:37
== END 2017-06-01 15:00 | disposition home or self-care (01) | DRG 948 ==
LOC: EDUNIT# 02:49 → ER 02:50 → 4TH 04:55
PROVIDERS: ADMIT Family Medicine; ATTEND Family Medicine
DX: R41.82 Altered mental status, unspecified (principal); Z68.44 Body mass index [BMI] 60.0-69.9, adult; E87.2 Acidosis; E11.9 Type 2 diabetes mellitus without complications; G47.30 Sleep apnea, unspecified; R11.0 Nausea; E78.00 Pure hypercholesterolemia, unspecified; I10 Essential (primary) hypertension; E66.01 Morbid (severe) obesity due to excess calories; G43.909 Migraine, unspecified, not intractable, without status migrainosus; M10.9 Gout, unspecified; E07.9 Disorder of thyroid, unspecified; J30.2 Other seasonal allergic rhinitis; F41.9 Anxiety disorder, unspecified; F32.9 Major depressive disorder, single episode, unspecified; N80.9 Endometriosis, unspecified; Z79.84 Long term (current) use of oral hypoglycemic drugs; Z86.73 Personal history of transient ischemic attack (TIA), and cerebral infarction without residual deficits
CPT/HCPCS: 36415; 71010; 80053; 81000; 82962; 83605; 83735; 84484; 84703; 85007; 85027; 85610; 85730; 86141; 87040; 96361; 96374

== ENCOUNTER 2017-06-21 18:16 | Emergency (ER) | payer MEDICARE ==
[~2017-06-21] VITALS: Ht 177.8 cm; Wt 172.4 kg
[~2017-06-21 18:16] MED LIST changes: +ACET-168 PO; +ASPI-983 PO; +CHOL4PAC2 PO; +FENO135C PO; +FLUO20CA25 PO; +IBUP-30 PO; +LEVO750T9 PO; +LOSA1TAB70 PO
[2017-06-21] MEDS ORDERED: NS IV 500 ML 500 ML IV ONE (18:32)
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
[2017-06-21 18:43] LABS: BASOPHILS % (AUTO) 0 % (0-10); EOSINOPHILS # (AUTO) 0.1 10^3/uL (0.0-0.3); EOSINOPHILS % (AUTO) 1 % (0-10); LYMPHOCYTES # (AUTO) 5.2 X 10^3 (1.0-4.0); LYMPHOCYTES % (AUTO) 33 % (12-44); MEAN CORPUSCULAR HEMOGLOBIN 28 PG (25-34); MEAN CORPUSCULAR HGB CONC 32 G/DL (32-36); MEAN CORPUSCULAR VOLUME 88 FL (80-99); MEAN PLATELET VOLUME 9.4 FL (7.4-10.4); MONOCYTES # (AUTO) 0.9 X 10^3 (0.0-1.0); MONOCYTES % (AUTO) 5 % (0-12); NEUTROPHILS # (AUTO) 9.6 X 10^3 (1.8-7.8); NEUTROPHILS % (AUTO) 61 % (42-75); PLATELET COUNT 376 10^3/uL (130-400); RED BLOOD COUNT 4.58 10^6/uL (4.35-5.85); RED CELL DISTRIBUTION WIDTH 13.6 % (10.0-14.5); WHITE BLOOD COUNT 15.9 10^3/uL (4.3-11.0)
[2017-06-21] MEDS ORDERED: ONDANSETRON 4 MG/2 ML (SDV) Z0FRAN IVP ONE (18:45)
[2017-06-21 18:55] LABS: BILIRUBIN,URINE NEGATIVE (NEGATIVE); KETONES,URINE NEGATIVE (NEGATIVE); LEUKOCYTE ESTERASE ,URINE NEGATIVE (NEGATIVE); NITRITE,URINE NEGATIVE (NEGATIVE); PH,URINE 6 (5-9); PROTEIN,URINE 4+ (NEGATIVE); UROBILINOGEN,URINE NORMAL (NORMAL)
[2017-06-21 18:58] LABS: ALBUMIN 3.9 GM/DL (3.2-4.5); BILIRUBIN,TOTAL 0.3 MG/DL (0.1-1.0); CALCIUM 9.3 MG/DL (8.5-10.1); CREATININE SERUM 1.1 MG/DL (0.60-1.30); MAGNESIUM 1.1 MG/DL (1.8-2.4); POTASSIUM 3.9 MMOL/L (3.6-5.0); TOTAL PROTEIN 8.5 GM/DL (6.4-8.2)
[2017-06-21 19:00] LABS: BAND NEUTROPHILS 4 %; BASOPHILS % (MANUAL) 0 %; EOSINOPHILS % (MANUAL) 0 %; LYMPHOCYTES % (MANUAL) 41 %; NEUTROPHILS % (MANUAL) 46 %
[2017-06-21 19:05] LABS: MYOGLOBIN SERUM 69.3 NG/ML (10.0-92.0)
--- NOTE | 2017-06-21 19:11 | Diagnostic Imaging Report ---
INDICATION: Left-sided chest pain. FINDINGS: A single view of the chest shows normal heart size and vascularity. The lungs are clear. There is no effusion or pneumothorax. There is no bony abnormality. IMPRESSION: Normal chest. There is no change from 06/01/2017. Dictated by: Dictated on workstation # [id number]
--- NOTE | 2017-06-21 19:15 | Diagnostic Imaging Report ---
INDICATION: Left-sided abdominal pain for two days. FINDINGS: Supine views of the abdomen are very limited due to large body habitus. The bowel gas pattern is within normal limits with no obstruction evident. No mass or calculus is seen. There is no bony abnormality. IMPRESSION: No abnormality is seen. Dictated by: Dictated on workstation # [id number]
[2017-06-21] MEDS ORDERED: cefTRIAXone 1 GM (ROCEPHIN) VIAL IV STA (19:38)
[2017-06-21] MEDS ORDERED: NS IV 1000 ML 1,000 ML IV ONE (19:40)
[2017-06-21] MEDS ORDERED: NS IV 1000 ML 1,000 ML IV STA ×2 (19:42)
[2017-06-21] MEDS ORDERED: LORazepam INJ 2 MG/ML (ATIVAN) VIAL IVP ONE (19:45)
[2017-06-21] MEDS ORDERED: fentaNYL INJECTION 100 MCG/2 ML AMP IVP ONE (19:45)
[2017-06-21] MEDS ORDERED: ONDANSETRON 4 MG/2 ML (SDV) Z0FRAN IVP PRN (19:45)
[2017-06-21] MEDS ORDERED: MAGNESIUM 1 GM/100 ML IVPB 100 ML IV ONE (20:30)
[2017-06-21 21:03] VITALS: BP 156/83
== END 2017-06-21 21:05 | disposition short-term general hospital (02) ==
LOC: EDUNIT# 18:16 → ER 18:17
DX: R10.13 Epigastric pain (principal); E87.2 Acidosis; E83.42 Hypomagnesemia; D72.829 Elevated white blood cell count, unspecified; R31.9 Hematuria, unspecified; E78.00 Pure hypercholesterolemia, unspecified; I10 Essential (primary) hypertension; G43.909 Migraine, unspecified, not intractable, without status migrainosus; M10.9 Gout, unspecified; E11.9 Type 2 diabetes mellitus without complications; F41.9 Anxiety disorder, unspecified; F32.9 Major depressive disorder, single episode, unspecified; Z91.5 Personal history of self-harm; Z87.448 Personal history of other diseases of urinary system; Z86.73 Personal history of transient ischemic attack (TIA), and cerebral infarction without residual deficits; Z79.82 Long term (current) use of aspirin; Z79.84 Long term (current) use of oral hypoglycemic drugs; Z87.59 Personal history of other complications of pregnancy, childbirth and the puerperium
CPT/HCPCS: 36415; 71010; 74000; 80053; 81000; 83605; 83690; 83735; 83874; 84484; 84703; 85007; 85027; 85379; 85610; 85730; 87040; 93005; 93041; 96361; 96365; 96375; 96376